=== PATIENT | male | born 2000 | race Caucasian/White ===

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

== ENCOUNTER 2021-11-08 16:43 | Outpatient (REF) | payer MEDICAID, SELFPAY ==
[2021-11-10 09:58] LABS: Hepatitis B Surface Ag Negative (Negative)
[2021-11-10 10:33] LABS: Hepatitis C Ab w Rflx HCV PCR Negative (Negative)
[2021-11-10 10:53] LABS: HIV-1/2 Ag & Ab Screen Negative (Negative)
[2021-11-10 11:16] LABS: Syphilis Serology (RPR) Negative (Negative)
[2021-11-11 13:17] LABS: HSV Type 1 Ab, IgG Positive (Negative); HSV Type 2 Ab, IgG Negative (Negative)
== END 2021-11-08 16:44 | disposition home or self-care (01) ==
LOC: NCHCN 16:43
PROVIDERS: PCP Internal Medicine; Visit Provider Physician Assistant
DX: Z11.3 Encounter for screening for infections with a predominantly sexual mode of transmission (principal); Z11.4 Encounter for screening for human immunodeficiency virus [HIV]; Z11.59 Encounter for screening for other viral diseases
CPT/HCPCS: 86803; 87340; 87389; 86592; 86695; 86696

== ENCOUNTER 2021-11-08 17:52 | Outpatient (REF) | payer MEDICAID, SELFPAY | END 2021-11-08 17:53 | disposition home or self-care (01) | LOC: NCHCN 17:52 | PROVIDERS: PCP Internal Medicine; Visit Provider Physician Assistant ==

== ENCOUNTER 2021-11-24 21:43 | Outpatient (REF) | payer MEDICAID, SELFPAY ==
[2021-11-28 13:56] LABS: Chlamydia Result Positive (Negative); GC Result Negative (Negative)
== END 2021-11-24 21:44 | disposition home or self-care (01) ==
LOC: NCHCN 21:43
PROVIDERS: PCP Internal Medicine; Visit Provider Physician Assistant
DX: Z11.3 Encounter for screening for infections with a predominantly sexual mode of transmission (principal)
CPT/HCPCS: 87491; 87591

== ENCOUNTER 2022-01-18 13:16 | Outpatient (REF) | payer MEDICAID, SELFPAY ==
[2022-01-20 15:15] LABS: Chlamydia Result Negative (Negative); GC Result Negative (Negative)
== END 2022-01-18 13:17 | disposition home or self-care (01) ==
LOC: NCHCN 13:16
PROVIDERS: PCP Internal Medicine; Visit Provider Physician Assistant
DX: A56.09 Other chlamydial infection of lower genitourinary tract (principal)
CPT/HCPCS: 87491; 87591